=== PATIENT | female | born 1985 | race Caucasian/White ===

== ENCOUNTER 2016-11-10 05:28 | Inpatient (IN) | payer BC ==
[~2016-11-10] VITALS: Ht 172.7 cm; Wt 97.2 kg
[2016-11-10] VITALS (16 sets, daily range): BP systolic 90–155; BP diastolic 42–104
[2016-11-10] MEDS ORDERED: LIDOCAINE 1% (XYLOCAINE) 20 ML VIAL ONE (05:46)
[2016-11-10] MEDS ORDERED: SODIUM CHLORIDE FLUSH 10 ML ONE ×2 (06:03→06:44)
[2016-11-10] MEDS ORDERED: ceFAZolin 2,000 MG in SODIUM CHLORIDE VIAL (PF) 20 ML IV SCH (06:30)
[2016-11-10] MEDS ORDERED: oxyCODONE/ACETAMINOPHEN 5MG-325 MG (PERCOCET) TABLET PO PRN (06:30)
[2016-11-10] MEDS ORDERED: IBUPROFEN 600 MG (MOTRIN) TAB PO SCH (06:30)
[2016-11-10] MEDS ORDERED: OXYTOCIN INJ 20 UNIT in NS 1000ml 1,000 ML IV SCH ×2 (06:30→09:13)
[2016-11-10] MEDS ORDERED: SODIUM CHLORIDE FLUSH 10 ML SYR IV PRN (06:30)
[2016-11-10] MEDS ORDERED: LANOLIN OINTMENT 28 GM TUBE TOP PRN ×2 (06:30→09:15)
[2016-11-10] MEDS ORDERED: ceFAZolin 1000 MG (ANCEF) VIAL ONE (06:43)
[2016-11-10] MEDS ORDERED: ROPIVACAINE 1% 10 MG/ML (NAROPIN) 20 ML AMPUL ONE (06:44)
[2016-11-10] MEDS ORDERED: OXYTOCIN 10 UNIT/ML (PITOCIN) 1 ML VIAL ONE ×2 (06:44→06:49)
[2016-11-10] MEDS ORDERED: morphine PF 0.5 MG/ML (DURAMORPH) 10 ML VIAL IV ONE (06:44)
[2016-11-10] MEDS ORDERED: POT BICARB/SOD BICARB/CIT AC (ALKA-SELTZER GOLD) 1 TABLET.EFF PO SCH (06:45)
[2016-11-10] MEDS ORDERED: diphenhydrAMINE 50 MG/ML INJ (BENADRYL) IV PRN (06:45)
[2016-11-10] MEDS ORDERED: NALOXONE 0.4 MG/ML (NARCAN) 1 ML VIAL IV PRN ×2 (06:45)
[2016-11-10] MEDS ORDERED: diphenhydrAMINE 50 MG (BENADRYL) CAPSULE PO PRN (06:45)
[2016-11-10] MEDS ORDERED: diphenhydrAMINE 50 MG/ML INJ (BENADRYL) IM PRN (06:45)
[2016-11-10] MEDS ORDERED: NALBUPHINE 10 MG/ML (NUBAIN) 1 ML AMP IV PRN ×2 (06:45)
[2016-11-10] MEDS ORDERED: METOCLOPRAMIDE 10 MG/2 ML (REGLAN) VIAL IV SCH (06:45)
[2016-11-10] MEDS ORDERED: POT BICARB/SOD BICARB/CIT AC (ALKA-SELTZER GOLD) 1 TABLET.EFF PO ONE (06:46)
[2016-11-10] MEDS ORDERED: METOCLOPRAMIDE 10 MG/2 ML (REGLAN) VIAL ONE (06:46)
[2016-11-10 06:52] LABS: MEAN CORPUSCULAR HEMOGLOBIN 30.3 PG (26.0-34.0); MEAN CORPUSCULAR HGB CONC 34.8 g/dL (31.0-37.0); MEAN PLATELET VOLUME 11.4 FL (6.0-9.5); WHITE BLOOD COUNT 10.23 10^3uL (4.0-11.0)
[2016-11-10] MEDS ORDERED: MIDAZOLAM 2 MG/2 ML (VERSED) VIAL ONE (07:16)
[2016-11-10] MEDS ORDERED: ePHEDrine SULFATE 50 MG/ML 1 ML AMP ONE (07:16)
[2016-11-10 08:02] LABS: BILIRUBIN,URINE Negative (Negative); CLARITY,URINE Clear; COLOR,URINE Yellow; GLUCOSE, URINE (UA) Negative (Negative); LEUKOCYTE ESTERASE, URINE Negative (Negative); UROBILINOGEN,URINE 0.2 mg/dL (0.2-1.0)
[2016-11-10] MEDS ORDERED: LORazepam 0.5 MG (ATIVAN) TABLET PO PRN (09:25)
--- NOTE | 2016-11-10 12:59 | NUR ---
Resuscitation noted written by myself and Dr. Wilson. Please see Physician note for specific details.
[2016-11-10] MEDS ORDERED: diphenhydrAMINE 50 MG/ML INJ (BENADRYL) ONE ×2 (13:01→21:33)
[2016-11-10] MEDS ORDERED: NS FLUSH 3 ML PRN IV (13:15)
[2016-11-10] MEDS: IBUPROFEN 600 MG (MOTRIN) TAB PO SCH ×3 (15:02→20:22)
[2016-11-10] MEDS: CITALOPRAM 10 MG (CELEXA) TABLET PO SCH (15:02)
--- NOTE | 2016-11-10 15:26 | NUR ---
Baby weighed 8lbs 11oz. 3930gms. Head 14 1/2 inches, Chest 12 1/4 inches, Abdomen 14 inches. 21 1/2 inches long.
--- NOTE | 2016-11-10 16:38 | NUR ---
Pt up to bathroom with standby assist. tolerated well. Pericare completed and instructed. Pt assisted to sink to wash hands. Tolerates well. Assisted back to bed. Denies further needs.
--- NOTE | 2016-11-10 17:04 | NUR ---
Report given to TAMARA Chawla at this time. Pt denies any needs. Resting in bed at this time. IVF infusing without complications, SCD's on and dressing clean, dry and intact.
--- NOTE | 2016-11-10 17:46 | NUR ---
Pts. sister has arrived from [place]. Family visiting in room.
[2016-11-10] MEDS ORDERED: diphenhydrAMINE 25 MG (BENADRYL) TABLET ONE (18:34)
[2016-11-10] MEDS: diphenhydrAMINE 25 MG (BENADRYL) TABLET PO PRN (18:36)
--- NOTE | 2016-11-10 18:38 | NUR ---
Pt. reports itching to abdomen and requests Benadryl PO. See EMAR.
--- NOTE | 2016-11-10 19:50 | NUR ---
Many family members surround pt; pt. appears to be enjoying the conversation; no current needs.
[2016-11-10] MEDS: ZOLPIDEM 10 MG (AMBIEN) TAB PO PRN (20:21)
[2016-11-10] MEDS: DOCUSATE SODIUM 100 MG (COLACE) CAP PO SCH (20:21)
--- NOTE | 2016-11-10 20:25 | NUR ---
Scheduled Motrin given; Ambien given per request. Visitors beginning to leave for the evening.
[2016-11-10] MEDS ORDERED: DOCUSATE SODIUM 100 MG (COLACE) CAP PO SCH (21:00)
[2016-11-10] MEDS: NS FLUSH 10 ML PRN IV ×2 (21:38→21:44)
--- NOTE | 2016-11-10 21:45 | NUR ---
Benadryl 50 mg IV given for itching. Pt. requests no visitors for the rest of the evening and staff technologist; sign posted and admissions notified. Pt. states current pain level is "1-2"; resp are even and unlabored on room air; SATS are 98% via cont. pulse ox; SCD's operational bilaterally. Robin to gravity; will DC in A.M. per pt. request. Call light and H2O within reach. Pt. is calm; pleasant; cooperative.
--- NOTE | 2016-11-11 01:00 | NUR ---
Pt. resting quietly; resp are even and unlabored on room air; cont. SAT monitor reads 98%. Pt. appears to be in no distress.
[2016-11-11] MEDS ORDERED: diphenhydrAMINE 25 MG (BENADRYL) TABLET ONE (03:08)
[2016-11-11] MEDS: IBUPROFEN 600 MG (MOTRIN) TAB PO SCH ×3 (03:37→17:23)
[2016-11-11] MEDS: diphenhydrAMINE 25 MG (BENADRYL) TABLET PO PRN (03:37)
--- NOTE | 2016-11-11 03:40 | NUR ---
Scheduled Motrin given; Benadryl 25 mg PO given for itching. H2O replenished. Pt. denies additional needs; is conversational and pleasant. Call light and H2O within reach.
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
[2016-11-11 04:03] VITALS: BP 111/59
[2016-11-11 06:46] LABS: MEAN CORPUSCULAR HEMOGLOBIN 29.7 PG (26.0-34.0); MEAN CORPUSCULAR HGB CONC 33.8 g/dL (31.0-37.0); MEAN PLATELET VOLUME 11.5 FL (6.0-9.5); WHITE BLOOD COUNT 8.93 10^3uL (4.0-11.0)
--- NOTE | 2016-11-11 07:20 | NUR ---
Pt. wishes to leave torrez catheter in a little longer; "I really would like to get a little more sleep first." Pauly MCDONALD will remove later. Pt. has no current requests; call light and H2O within reach.
[2016-11-11 07:42] VITALS: BP 118/71
[2016-11-11] MEDS: LORATADINE (CLARITIN) 10 MG TAB PO SCH (08:48)
[2016-11-11] MEDS: CITALOPRAM 10 MG (CELEXA) TABLET PO SCH (08:48)
[2016-11-11] MEDS: NS FLUSH 3 ML DAILY IV SCH (08:49)
[2016-11-11] MEDS ORDERED: NON-FORMULARY MEDICATION 1 EA EA (Cetirizine HCl (Zyrtec) 10 MG) PO SCH ×2 (09:00)
--- NOTE | 2016-11-11 09:10 | NUR ---
Robin was DC'd per order. Patient tolerated this well.
--- NOTE | 2016-11-11 10:30 | NUR ---
Ambulated to the shower. Dressings on abdominal incisions were removed and surgical site looked good- without redness or edema. A small amount of bright red blood is still oozing from the incision.
--- NOTE | 2016-11-11 11:00 | NUR ---
OB staff here to assess the patient.
[2016-11-11 11:21] VITALS: BP 120/72
[2016-11-11] MEDS: oxyCODONE/ACETAMINOPHEN 5MG-325 MG (PERCOCET) TABLET PO PRN ×3 (11:50→21:33)
--- NOTE | 2016-11-11 12:45 | NUR ---
DC'otoniel SL per order.
--- NOTE | 2016-11-11 16:00 | NUR ---
Ambulated the halls with family members. Pain control has improved significantly with the introduction of Percocet this afternoon. She received one tab on two different occasions this shift. This dropped pain level from 4 or 5/10 to 2/10.
[2016-11-11 16:01] VITALS: BP 121/71
--- NOTE | 2016-11-11 18:29 | NUR ---
Patient has been able to eat without any nausea or vomiting. She has been able to pass gas as well. Voided 1575 cc's since shan was DC'd at 0910.
[2016-11-11 20:02] VITALS: BP 126/74
--- NOTE | 2016-11-11 20:05 | NUR ---
Pt. ambulating hallway with friend; steady and even pace.
[2016-11-11] MEDS: DOCUSATE SODIUM 100 MG (COLACE) CAP PO SCH (20:50)
--- NOTE | 2016-11-11 20:50 | NUR ---
Pt. sitting cross-legged on bed; visiting with friend; smiles and appears cheerful. Discussed PRN pain meds/scheduled pain med. Pt. denies nausea/itching. Pt. requests Ambien for later. No current needs; call light and H2O within reach.
--- NOTE | 2016-11-11 21:33 | NUR ---
Percocet (1) PO given for incisional pain rated "2-3"; pt. just back from ambulating hallway again. Pt. discusses length of stay; would like to remain in hospital until Sunday afternoon; "I really need another good night's sleep or two".
[2016-11-11] MEDS: ZOLPIDEM 10 MG (AMBIEN) TAB PO PRN (22:02)
--- NOTE | 2016-11-11 22:05 | NUR ---
Efren PO given per request; new linens provided; friend preparing to leave for the evening.
--- NOTE | 2016-11-11 23:00 | NUR ---
Pt. ambulates easily to and fro bathroom; no problem with voids. Pt. states she is passing a lot of gas; "burps". This nurse assists with removing tape residual from skin on left side of hip.
[2016-11-11 23:37] VITALS: BP 124/72
[2016-11-12] MEDS: IBUPROFEN 600 MG (MOTRIN) TAB PO SCH ×4 (00:09→18:32)
--- NOTE | 2016-11-12 02:00 | NUR ---
Pt. appears to be sleeping; partially covered with blanket she had been crocheting for baby. Respirations are even and unlabored on room air. Call light and H2O within reach.
[2016-11-12] MEDS: oxyCODONE/ACETAMINOPHEN 5MG-325 MG (PERCOCET) TABLET PO PRN ×4 (05:30→19:48)
--- NOTE | 2016-11-12 05:30 | NUR ---
Percocet (1) PO given for incisional pain rated "6-7". Fresh gauze applied next to incisional line with mesh underwear holding in place; no oozing noted; edges well approximated on low transverse incision. Pt. ambulates easily about room; states, "I think I might have done too much walking yesterday!"
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
--- NOTE | 2016-11-12 07:30 | NUR ---
0727 - Motrin 600 mg given at this time. Pt. back from taking a shower; this nurse changes bed linens while pt. rests in chair. Pt. is looking forward to her mother arriving later today. Much reassurance given to pt; pt. struggling to maintain upbeat attitude.
[2016-11-12 08:00] VITALS: BP 124/69
[2016-11-12] MEDS: NS FLUSH 3 ML DAILY IV SCH (08:56)
[2016-11-12] MEDS: LORATADINE (CLARITIN) 10 MG TAB PO SCH (10:39)
[2016-11-12] MEDS: CITALOPRAM 10 MG (CELEXA) TABLET PO SCH (10:39)
[2016-11-12] MEDS ORDERED: BACITRACIN/POLYMYXIN OINTMENT 1 PACKET TOP SCH (14:48)
[2016-11-12 16:00] VITALS: BP 133/75
[2016-11-12] MEDS: BACITRACIN OINTMENT 0.9 GM PACKET TOP SCH ×2 (16:05→21:26)
--- NOTE | 2016-11-12 19:45 | NUR ---
Patient has had episodes of crying and sadness intermittently today but overall she appears to have healthy coping skills and a good support system. Percocet has controlled her pain adequately.
--- NOTE | 2016-11-12 19:50 | NUR ---
Percocet 5 (1) PO given for incisional pain rated "6". Pt.; sister; and mother leave room to ambulate hallway; pt. appears to be in good spirits-surrounded by family. Addendum: 11/12/16 at 2040 by Betzy Fair RN Correction: Pt. rated pain at "4".
[2016-11-12] MEDS: DOCUSATE SODIUM 100 MG (COLACE) CAP PO SCH (21:26)
--- NOTE | 2016-11-12 21:30 | NUR ---
Many family members and friends here; pt. resting in bed; H2O replenished; pt. appears cheerful.
[2016-11-12] MEDS: ZOLPIDEM 10 MG (AMBIEN) TAB PO PRN (22:40)
--- NOTE | 2016-11-12 22:40 | NUR ---
Ambien given per request. Pt. ready for sleep. Mother staying the night with pt.; cot & linens provided.
--- NOTE | 2016-11-12 22:45 | NUR ---
Low transverse incision well approximated; scant drainage noted on gauze strip held in place with mesh panties. Pt. exhibits good initiative with self care and asks many appropriate questions. Ointment applied to raw area on right hip related to removal of tape from original dressing. H2O replenished.
--- NOTE | 2016-11-12 23:30 | NUR ---
Report given to Sarah/TAMARA; care relinquished.
[2016-11-12 23:45] VITALS: BP 122/70
[2016-11-12] MEDS ORDERED: diphenhydrAMINE 50 MG (BENADRYL) CAPSULE PO ONE (23:57)
--- NOTE | 2016-11-13 | NUR ---
PRN Benadryl given at this time per pt request. Denies other needs.
[2016-11-13] MEDS: IBUPROFEN 600 MG (MOTRIN) TAB PO SCH ×3 (00:01→11:22)
--- NOTE | 2016-11-13 05:14 | NUR ---
Pt rested well this shift. Mom at bedside. Pt appears to be in good spirits. Skin warm, dry. Drsg intact. Resprs nonlabored, even on RA. Denies needs.
--- NOTE | 2016-11-13 07:50 | NUR ---
Pt awake/alert/oriented x4, ambulating in room. Rates incisional pain 3/10- denies need for additional pain medications. Sitting at edge of bed for bfst meal. Pt quiet, talkative with mom. states she is passing gas, but no BM yet-requests prune juice. smiles and thanks nurse. Will cont to monitor patient.
[2016-11-13 08:00] VITALS: BP 113/62
[2016-11-13] MEDS: CITALOPRAM 10 MG (CELEXA) TABLET PO SCH (08:24)
[2016-11-13] MEDS: LORATADINE (CLARITIN) 10 MG TAB PO SCH (08:24)
--- NOTE | 2016-11-13 08:25 | NUR ---
Percocet 5mg PO given for 4/[address] Wilson and Claudia S RN at bedside. Pt denies further needs at this time.
[2016-11-13] MEDS: oxyCODONE/ACETAMINOPHEN 5MG-325 MG (PERCOCET) TABLET PO PRN (08:26)
[2016-11-13] MEDS: NS FLUSH 3 ML DAILY IV SCH (09:00)
[2016-11-13] MEDS: BACITRACIN OINTMENT 0.9 GM PACKET TOP SCH ×2 (09:20→11:22)
[2016-11-13] MEDS: DOCUSATE SODIUM 100 MG (COLACE) CAP PO SCH (11:22)
--- NOTE | 2016-11-13 14:17 | NUR ---
Claudia King RN in room discussing discharge instructions with patient and scripts x3. [facility] already spoke to Patient regarding med rec. No IV intact to discontinue.
--- NOTE | 2016-11-13 14:26 | NUR ---
Pt dismissed to home via ambulation accompanied by parents, and Corporate Safety Director Alexsander Christiansen.
--- NOTE | 2016-11-13 14:27 | NUR ---
1420-Dismissal instructions reviewed with patient. Patient verbalizes understanding and all questions answered. Pt will be escorted out by [employer] CLERK.
== END 2016-11-13 14:25 | disposition home or self-care (01) | DRG 765 ==
LOC: OB 05:28 → MED/SURG 12:10
PROVIDERS: ADMIT Family Medicine; ATTEND Family Medicine
PROC: 10D00Z1 Extraction of Products of Conception, Low, Open Approach (ICD-10-PCS; principal; 2016-11-10)
DX: O34.211 Maternal care for low transverse scar from previous cesarean delivery (principal); O36.4XX0 Maternal care for intrauterine death, not applicable or unspecified; O77.0 Labor and delivery complicated by meconium in amniotic fluid; O69.1XX0 Labor and delivery complicated by cord around neck, with compression, not applicable or unspecified; O99.334 Smoking (tobacco) complicating childbirth; F17.210 Nicotine dependence, cigarettes, uncomplicated; O99.613 Diseases of the digestive system complicating pregnancy, third trimester; K21.9 Gastro-esophageal reflux disease without esophagitis; Z30.2 Encounter for sterilization; Z3A.39 39 weeks gestation of pregnancy; Z37.1 Single stillbirth
CPT/HCPCS: 36415; 59510; 81003; 85014; 85018; 85027; 86850; 86900; 86901; 87070; 87075; 94762

== ENCOUNTER → 2016-11-30 | Outpatient (CLI) | payer BC | LOC: RAD 10:01 | PROVIDERS: ATTEND Family Medicine | DX: R10.12 Left upper quadrant pain (principal) | CPT/HCPCS: 76700 ==